=== PATIENT | male | born 1950 | race Caucasian/White ===

== ENCOUNTER 2017-05-03 13:42 | Emergency (ER) | payer MEDICARE, OTHER ==
[~2017-05-03] VITALS: Ht 167.6 cm; Wt 73.1 kg
[2017-05-03] MEDS ORDERED: IBUPROFEN800 MG PO (14:02)
[2017-05-03] MEDS ORDERED: FEOSOL325 MG PO (15:18)
[2017-05-03] MEDS ORDERED: COLACE100 MG PO (15:18)
== END 2017-05-03 15:25 | disposition home or self-care (01) ==
LOC: ED 13:42
DX: K92.2 Gastrointestinal hemorrhage, unspecified (principal); Z87.891 Personal history of nicotine dependence
CPT/HCPCS: 80053; 85025; 99283

== ENCOUNTER 2024-08-08 10:46 | Day surgery (SDC) | payer MEDICARE, OTHER ==
[~2024-08-08] VITALS: Ht 167.6 cm; Wt 65.9 kg
--- NOTE | ~2024-08-08 | OR ---
[facility] [address] [place], [place] [address] Draft DATE OF OPERATION: 08/08/2024 SURGEON: Linda Archer MD PREOPERATIVE DIAGNOSIS: History of laparoscopic Mahamed patch to perforated prepyloric ulcer May 17, 2024. POSTOPERATIVE DIAGNOSIS: Mild antral gastritis. No evidence of persistent or recurrent ulcer. PROCEDURE: Esophagogastroduodenoscopy with biopsy. EXTRUSION BENDER: Jero Archer MD. INDICATION: This 74-year-old white man is a patient of Dr. Lara. He underwent laparoscopic Mahamed patch for perforated prepyloric ulcer on May 17, 2024. He was treated "as if" for H pylori, though it was never proven. He did not have risk factors of smoking or NSAID use. He has been doing very well clinically since that time, having undergone PPI treatment, H pylori treatment and Carafate treatment. He is admitted at this time to undergo upper endoscopy to assure there is complete healing before manipulating his other medicines. The risk of bleeding, infection, and perforation were reviewed with him. He understands and wished to proceed. FINDINGS: There was no sign of recurrent or persistent ulcer. There is no gastric outlet obstructive process. The area of healing was unclear indicative of very good healing indeed. The esophagus had mild felinization in the midportion and biopsies obtained there. CLOtest biopsies were negative. He did have some mild antral gastritis, but no neoplasm. The duodenum was also normal. DESCRIPTION OF PROCEDURE: The patient was brought to the endoscopy suite and given topical lidocaine hypopharyngeal anesthesia and placed in the lateral decubitus position. A bite block was placed after intravenous sedation was induced with full cardiopulmonary monitoring. An Olympus video upper endoscope was passed in the hypopharynx. The vocal cords were visualized and found to be normal. The scope was advanced to the esophagus without problem, throughout its length it appeared normal. The distal esophagus was normal. PATIENT NAME: EDIE VAZQUEZ OPERATIVE REPORT DATE OF : 46 REPORT #: [id number] PHYSICIAN: LINDA ARCHER MD PCP: NO PRIMARY CARE PHYSICIAN REPORT IS CONFIDENTIAL AND NOT TO BE RELEASED WITHOUT AUTHORIZATION [facility] [address], [place] [address] Draft The scope was passed to the stomach which was insufflated with air. Rugal folds were normal. The antrum was normal. Pylorus normal. Scope was passed through into the duodenum. 2nd and 3rd portions were normal. Careful inspection in the bulbar portion showed no sign of abnormality. Careful withdrawal through the pylorus and visualizing the anterior wall of the stomach showed no sign of stigmata of prior patch. The antrum did have mild antral gastritis and therefore, biopsies were obtained for CLOtest and pathologic evaluation. Retroflexed view was essentially normal. Scope was withdrawn to the distal esophagus, which was normal. Further withdrawal showed some felinization of the mid esophagus, which was biopsied to assess for the eosinophilic esophagitis. Further withdrawal showed no other abnormality. The scope was removed and the patient was taken to recovery room in good condition. CONCLUDING DIAGNOSIS: Healed ulcer. PLAN: Would continue PPI medication until 6 six months time, which would indicate discontinue in October of 2024. If symptoms of pain should occur, he will return to the ongoing care of Dr. Bhargav Lara. MD RICHIE Easley/SINAL /[id number] cc: Dr. Lara Copies: ~ PATIENT NAME: TAYLOREDIE OPERATIVE REPORT DATE OF : 46 REPORT #: [id number] PHYSICIAN: LINDA ARCHER MD PCP: NO PRIMARY CARE PHYSICIAN REPORT IS CONFIDENTIAL AND NOT TO BE RELEASED WITHOUT AUTHORIZATION
[~2024-08-08 10:46] MED LIST: AMOXICILLIN500 MG PO; COLACE100 MG PO; DOXYCYCLINE HY100 MG PO; FEOSOL325 MG PO; IBLOOD GLUCOSE TEST STRIP 1 EA TEST VI PRN; IBUPROFEN800 MG PO; LACTATED RINGER'S 1,000 ML IV SCH; LIDOCAINE HCL 1% 5 ML SDV INJ ONE; LIDOCAINE HCL 4% 50 ML BTL TOP SCH; LISINOPRIL10 MG PO; METRONIDAZOLE250 MG PO; MIDAZOLAM HCL 5 MG/5 ML VIAL IV PRN; PEPTO-BISMOL262 MG PO; PROTONIX40 MG PO; fentaNYL citrate 100 MCG/2 ML VIAL IV PRN
[2024-08-08 11:03] VITALS: BP 164/87
[2024-08-08] MEDS ORDERED: OMEPRAZOLE20 MG PO (11:09)
[2024-08-08] MEDS ORDERED: fentaNYL citrate 100 MCG/2 ML VIAL ONE (14:01)
[2024-08-08] MEDS ORDERED: MIDAZOLAM HCL 5 MG/5 ML VIAL ONE (14:02)
--- NOTE | 2024-08-08 14:53 | NUR ---
08/08/24 1453 Hattie Brambila 1426 PT ARRIVED TO PACU ON 2L VIA NC PT WAKES TO VERBAL STIMULI AND IS REORIENTED TO PACU. PT EASILY FALLS BACK TO SLEEP. VSS. 1429 O2 TURNED OFF AND PT WAKES OFF AND ON. PT REPORTS "I DIDN'T FEEL ANYTHING." 1438 MD AT BEDSIDE TALKING TO PT. ALL QUESTIONS ANSWERED. 1443 PT SIPPING WATER AND DENIES CONCERNS. EDUCATION GIVEN ON MEDICATION AND NOT DRIVING FOR 24 HOURS.
[2024-08-08 14:59] VITALS: BP 165/85
--- NOTE | 2024-08-12 18:40 | PATH ---
[facility] [address] [place], [place] [address] Signed SPECIMEN(S): A ANTRUM/PYLORUS BIOPSY SPECIMEN(S): B MIDDLE ESOPHAGEAL BIOPSY SPECIMEN SOURCE: A. ANTRUM/PYLORUS BIOPSY B. MIDDLE ESOPHAGEAL BIOPSY CLINICAL HISTORY: Pre-: S/p duodenal ulcer with Mahamed patch. Post: Healed duodenal ulcer, antral gastritis FINAL PATHOLOGIC DIAGNOSIS: A. Antrum/pylorus biopsy: - Gastric mucosa with diffuse chronic gastritis. - A Helicobacter pylori immunostain is negative for organisms. - Focal proximal benign small bowel-type mucosa, negative for atypical features. B. Mid esophageal biopsy: - Benign esophageal epithelium, negative for increased epithelial eosinophils. - Negative for glandular mucosa. JVR:clv MICROSCOPIC EXAMINATION: Histologic sections of all submitted blocks are examined by light microscopy. These findings, together with the gross examination, support the pathologic diagnosis. A Helicobacter pylori immunostain is performed with appropriate positive and negative controls on block A1 and is negative for organisms. JVR:clv GROSS DESCRIPTION: A. The specimen, labeled and designated "Chip, antrum biopsy," is received in formalin and consists of one aguirre soft tissue fragment, 0.2 cm. Entirely submitted in (A1). B. The specimen, labeled and designated "Chip, middle esophagus biopsy," is received in formalin and consists of one aguirre soft tissue fragment, 0.1 cm. Entirely submitted in (B1). JS (under the direct supervision of a pathologist) The Gross Description was prepared using a voice recognition system. The report was reviewed for accuracy; however, sound-alike word errors, addition and/or deletions may occur. If there is any PATIENT NAME: EDIE VAZQUEZ PATHOLOGY DATE OF : 46 REPORT #: [id number] PHYSICIAN: [facility] PCP: NO PRIMARY CARE PHYSICIAN REPORT IS CONFIDENTIAL AND NOT TO BE RELEASED WITHOUT AUTHORIZATION [facility] [address] [facility] [place] [place] [address] Signed question about this report, please contact Client Services. PERFORMING LABORATORY: Technical component was performed by [facility], [address] [place] [address] (CLIA# [id number]). Professional interpretation was performed by [facility], [address] [place] [id number] (CLIA#: [id number]). Diagnostician: Gomez Romero MD Pathologist Electronically Signed 08/12/2024 Copies: ~ PATIENT NAME: EDIE VAZQUEZ PATHOLOGY DATE OF : 46 REPORT #: [id number] PHYSICIAN: [facility] PCP: NO PRIMARY CARE PHYSICIAN REPORT IS CONFIDENTIAL AND NOT TO BE RELEASED WITHOUT AUTHORIZATION
== END 2024-08-08 15:24 | disposition home or self-care (01) ==
LOC: DS 10:46
PROVIDERS: ATTEND Surgery
PROC: 0DB28ZX Excision of Middle Esophagus, Via Natural or Artificial Opening Endoscopic, Diagnostic (ICD-10-PCS; 2024-08-08)
PROC: 0DB68ZX Excision of Stomach, Via Natural or Artificial Opening Endoscopic, Diagnostic (ICD-10-PCS; principal; 2024-08-08 12:45)
DX: K29.50 Unspecified chronic gastritis without bleeding (principal); I10 Essential (primary) hypertension; Z79.899 Other long term (current) drug therapy
CPT/HCPCS: G0500; J2250; J3010; J7121